=== PATIENT | female | born 1990 | race Two or more races ===

== ENCOUNTER 2024-03-19 17:49 | Emergency (ER) | payer MEDICAID ==
[~2024-03-19] VITALS: Ht 165.1 cm; Wt 108.0 kg
[2024-03-19 17:58] VITALS: BP 114/78; PULSE 90; RESP 16; TEMP 98.8
[2024-03-19 20:05] LABS: COVID19 ANTIGEN SOFIA FIA NEGATIVE (NEGATIVE); Rapid Influenza A Negative (Negative); Rapid Influenza B Negative (Negative)
[2024-03-19] MEDS: DexAMETHasone SOD PHOS 10MG/1ML VIAL INJ IM ONE (20:45)
[2024-03-19 22:00] VITALS: O2SAT 98
== END 2024-03-19 22:00 | disposition home or self-care (01) ==
LOC: ER 17:49
DX: B34.9 Viral infection, unspecified (principal); Z20.822 Contact with and (suspected) exposure to COVID-19; Z88.2 Allergy status to sulfonamides; Z88.6 Allergy status to analgesic agent
CPT/HCPCS: 36415; 87426; 87804

== ENCOUNTER 2025-02-13 18:34 | Emergency (ER) | payer MEDICAID ==
[~2025-02-13] VITALS: Ht 165.1 cm; Wt 115.0 kg
--- NOTE | 2025-02-13 19:10 | ED.PDOC ---
GI ASSESSMENT HPI Comments 34 Year old Female presents to the ED for the c/c of Epigastric ABD pain. Pt states that her pain started approx 3x hours ago while she was eating dinner on the couch with her son. Pt notes she started have associated SOB, light CP, N/ but no /V with her ABD pain. Pt notes that there are no alleviating factors at this time, with a worsening factor of laying down. Pt notes that she is currently 28 weeks . No other associated symptoms, modifiers, recent injuries or sick contacts present at this time. Chief Complaint: Abdominal Pain Time Seen by MD: 19:04 Primary Care Provider: UNKNOWN Reviewed Notes: Nurses Notes, Medications, Allergies Allergies: Coded Allergies: Morphine (Verified Allergy, Unknown, 03/19/24) Sulfa Antibiotics (Verified Allergy, Unknown, 03/19/24) Information Source: Patient Mode of Arrival: Ambulatory Timing: Hours Duration: Since onset, Hours Prehospital treatment: None Quality: Aching, Cramping Vomitus: None Stool: Normal Severity: Moderate Recent: None Recent Hx of: None Pain Location: Diffuse, Epigastric Modifying Factors: Food, Position, Movement Associated sign and symptoms: Nausea, Abdominal Pain Vital Signs Vital Signs Date Time Temp Pulse Resp B/P (MAP) Pulse Ox O2 Delivery O2 Flow Rate FiO2 02/13/25 18:53 97.9 74 16 110/50 (70) 95 97.9 Physical Exam General: Awake, alert and oriented. Moderate acute distress. Skin: Skin in warm, dry and intact. Appropriate color for ethnicity. HEENT: The head is normocephalic and atraumatic. Conjunctivae are clear without exudates or hemorrhage. Sclera is non-icteric. EOM are intact. No signs of nystagmus. Eyelids are normal in appearance without swelling or lesions. Oral mucosa is pink and moist Neck: The neck is supple with normal range of motion. No JVD. Cardiac: Heart rate and rhythm are normal. No murmurs, gallops, or rubs are auscultated. Respiratory: No signs of respiratory distress. Lung sounds are clear in all lobes bilaterally without rales, rhonchi, or wheezes. Abdominal: Abdomen is soft, non-tender without distention, guarding or rigidity. Gravid abdomen. Bowel sounds are present and normoactive in all four quadrants. No CVA tenderness. Extremities: Upper and lower extremities are atraumatic in appearance without deformity or edema. Neurological: The patient is awake, alert and oriented to person, place, and time with normal speech. Speech is clear. There is no facial asymmetry. Psychiatric: Appropriate mood and affect. Good judgement and insight. Review of Systems: REVIEW OF SYSTEMS: No fever, no chills, or fatigue HEENT: No sore throat, no earache, no congestion, no neck pain. Cardiac: + chest pain. No palpitations. Lungs: + shortness of breath, no cough. GI: + nausea, no vomiting, no diarrhea, no constipation, no abdominal pain : No dysuria, frequency, or urgency. No hematuria. Musculoskeletal: No joint pain , no joint swelling, no extremity edema. Skin: No rash, no itching. 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 Was a procedure done?: No GI differential Dx Differential Diagnosis: Appendicitis, Cholangitis, Cholecystitis, Constipation, Ectopic , Gastritis/PUD, Pancreatitis, X-Ray, Labs, Meds, VS Vital Signs Date Time Temp Pulse Resp B/P (MAP) Pulse Ox O2 Delivery O2 Flow Rate FiO2 02/13/25 18:53 97.9 74 16 110/50 (70) 95 97.9 Lab Test 02/13/25 19:05 02/13/25 18:56 Range/Units White Blood Count 13.2 H 4.4-10.8 10^3/uL Red Blood Count 4.30 4.0-5.20 10^6/uL Hemoglobin 12.5 12.2-16.2 g/dL Hematocrit 37.3 36.0-46.0 % Mean Corpuscular Volume 86.8 80.0-100.0 fL Mean Corpuscular Hemoglobin 29.1 28.0-32.0 pg Mean Corpuscular Hemoglobin Concent 33.6 32.0-36.0 g/dL Red Cell Distribution Width 13.6 11.8-14.3 % Platelet Count 317 140-450 10^3/uL Mean Platelet Volume 8.2 6.9-10.8 fL Neutrophils (%) (Auto) 77.9 37.0-80.0 % Lymphocytes (%) (Auto) 14.0 10.0-50.0 % Monocytes (%) (Auto) 6.6 0.0-12.0 % Eosinophils (%) (Auto) 1.1 0.0-7.0 % Basophils (%) (Auto) 0.4 0.0-2.0 % Neutrophils # (Auto) 10.3 H 1.6-8.6 10 ^3/uL Lymphocytes # (Auto) 1.8 0.4-5.4 10 ^3/uL Monocytes # (Auto) 0.9 0-1.3 10 ^3/uL Eosinophils # (Auto) 0.2 0-0.8 10 ^3/uL Basophils # (Auto) 0.1 0-0.2 10 ^3/uL Nucleated Red Blood Cells 0.0 % Sodium Level 139 136-145 mmol/L Potassium Level 3.7 3.5-5.1 mmol/L Chloride Level 107 98-107 mmol/L Carbon Dioxide Level 22 20-31 mmol/L Anion Gap 10 5-15 Blood Urea Nitrogen 8 L 9-23 mg/dL Creatinine 0.74 0.550-1.02 mg/dL Glomerular Filtration Rate Calc 109 >90 mL/min BUN/Creatinine Ratio 10.8 10.0-20.0 Serum Glucose 114 H 74-106 mg/dL Calcium Level 9.7 8.7-10.4 mg/dL Magnesium Level 1.9 1.6-2.6 mg/dL Total Bilirubin 0.4 0.2-1.0 mg/dL Aspartate Amino Transferase (AST) 44 H 13-40 U/L Alanine Aminotransferase (ALT) 26 7-40 U/L Alkaline Phosphatase 82 46-116 U/L Troponin I High Sensitivity < 3 L </=34 ng/L Total Protein 6.7 5.7-8.2 g/dL Albumin 4.1 3.2-4.8 g/dL Lipase 41 12-53 U/L Urine Color Yellow Yellow Urine Clarity Turbid H Clear Urine pH 5.5 5.0-9.0 Urine Specific Sunspot 1.025 1.001-1.035 Urine Protein Trace H Negative Urine Ketones Negative Negative Urine Blood Negative Negative /uL Urine Nitrite Negative Negative Urine Bilirubin Negative Negative Urine Urobilinogen Normal Negative mg/dL Urine Leukocyte Esterase Negative Negative /uL Urine RBC 3 0 - 4 /hpf Urine Microscopic WBC 4 0-5 /HPF Urine Squamous Epithelial Cells Mod <5 /hpf Urine Bacteria Few H None Seen /hpf Urine Mucus Few None Seen Urine Glucose Normal Normal mg/dL PATIENT: MORRIS CASAS ACCT: [id number] UNIT: [id number] : 1990 LOC: ER ROOM / BED: / AGE / SEX: 34 / F ADM STATUS: REG ER SERVICE 52 ORDERING PHYSICIAN: MOOSE GOMEZ MD PROCEDURE(s): GBUS - GALLBLADDER REASON: epigastric pain ORDER NUMBER(s): [id number], ACCESSION NUMBER(s): [id number] ABDOMINAL ULTRASOUND CLINICAL HISTORY: epigastric pain TECHNIQUE: Multiple grayscale and color Doppler ultrasound images were obtained of the abdomen. WID: COMPARISON: None FINDINGS: Liver and Biliary System: Homogeneous echotexture, normal size measuring 16.92 cm. No focal hepatic observations. No intrahepatic bile duct dilatation. The common duct measures 0.5 cm at the chaim hepatis. The gallbladder cholelithiasis in a normal caliber gallbladder. Gallbladder wall measures 5.7 mm.. Pancreas: Visualized portions are unremarkable. Kidneys: The right kidney is 10.78 cm . No hydronephrosis, increased echogenicity, shadowing stone, or focal lesion. IMPRESSION: 1. Cholelithiasis in a normal caliber gallbladder with mild wall thickening. Sonographic Bunch's sign is negative. Wall thickening DDX includes underlying hepatic dysfunction, volume overload, or less likely acute or chronic cholecystitis. ENT: MORRIS CASAS ACCT: [id number] UNIT: [id number] : 1990 LOC: ER ROOM / BED: / AGE / SEX: 34 / F ADM STATUS: REG ER SERVICE 52 ORDERING PHYSICIAN: MOOSE GOMEZ MD PROCEDURE(s): OBUS - OB ULTRASOUND COMP GTR 14 WKS REASON: / epigastric pain / decreased movement ORDER NUMBER(s): [id number], ACCESSION NUMBER(s): [id number] OB ULTRASOUND COMPLETE: HISTORY: / epigastric pain / decreased movement TECHNIQUE: Multiple real-time grayscale images of the gravid uterus with duplex Doppler color flow and M-mode spectral analysis. FINDINGS: IUP single live fetus at 28 weeks 4 days average ultrasound age (AUA) based on composite averages of the BPD, head circumference, abdominal circumference and femur length Age based on (early ultrasound) : No prior studies MEASUREMENTS: BPD: 7.08 cm GA: 20 w 3 d HC: 26.16 cm GA: 28 w 3 d AC: 22.54 cm GA: 27 w 0 d FL: 5.75 cm GA: 30 w 1 d HC/AC Ratio: 1.16 Range: 1-1.21 Estimated weight 1203 grams; 2 lbs 10 oz, 44.3 percentile. heart rate 136 beats per minute LARISSA 12.2 cm, MVP 4.26 cm anatomic survey: Lateral ventricles: Normal Posterior fossa: Normal Umbilical cord: Normal three-vessel C-spine: Normal T-spine: Normal L-spine: Normal Heart: Normal four-chamber Kidneys: Normal without hydronephrosis Bladder: Normal Lower extremities: Normal Upper extremities: Normal Stomach: Normal stomach bubble Diaphragms: Normal Nose/lips: Normal RVOT: Normal LVOT: No rmal Vertex Presentation Grade 2 Placenta without previa or abruption Cervix closed measuring 3.5 cm IMPRESSION: 1. IUP single live fetus at 28 weeks 4 days AUA corresponding to an SHERWIN of 05/04/2025. 2. FHR: 136 beats per minute. Time of 1ST Reevaluation: 19:35 Reevaluation 1ST: Unchanged Patient Education/Counseling: Need For Follow Up Family Education/Counseling: No Family Present Departure 1 Departure Time of Disposition: 20:43 Impression: Primary Impression: Abdominal pain Additional Impressions: Gallstones Normal Disposition: 01 HOME / SELF CARE / HOMELESS Condition: Stable Additional Instructions: ED DISCHARGE INSTRUCTIONS Instructions: Please read all instructions provided in this packet carefully. Although you have been discharged from the Emergency Department, this does not mean that you have a "clean bill of health". No definitive diagnosis for your symptoms has been made today. It is possible that you are in the process of developing a serious illness. This is why you must return to the ED without fail if any new or worsening symptoms (especially if your symptoms include chest pain, trouble breathing, abdominal pain, fever, headache, confusion, trouble seeing, or trouble walking) It is also very important that you see a primary care doctor within the next 3-5 days to follow up. If you are unable to get an appointment, return to the ED for re-evaluation. A copy of your ultrasound report is included below: Abdominal Pain: Care Instructions Overview Abdominal pain has many possible causes. Some aren't serious and get better on their own in a few days. Others need more testing and treatment. If your pain continues or gets worse, you need to be rechecked and may need more tests to find out what is wrong. You may need surgery to correct the problem. Don't ignore new symptoms, such as fever, nausea and vomiting, urination problems, pain that gets worse, and dizziness. These may be signs of a more serious problem. If you are not getting better, you may need more tests or treatment. The doctor has checked you carefully, but problems can develop later. If you notice any problems or new symptoms, get medical treatment right away. Follow-up care is a corrigan part of your treatment and safety. Be sure to make and go to all appointments, and call your doctor if you are having problems. It's also a good idea to know your test results and keep a list of the medicines you take. How can you care for yourself at home? Rest until you feel better. To prevent dehydration, drink plenty of fluids. Choose water and other clear liquids until you feel better. If you have kidney, heart, or liver disease and have to limit fluids, talk with your doctor before you increase the amount of fluids you drink. When you feel like eating, start with small amounts. Do not have alcohol, caffeine, or spicy, hot, or high-fat foods for a day or two. Avoid anti-inflammatory medicines such as aspirin, ibuprofen (Advil, Motrin), and naproxen (Aleve). These can cause stomach upset. Talk to your doctor if you take daily aspirin for another health problem. When should you call for help? Call 911 anytime you think you may need emergency care. For example, call if: You passed out (lost consciousness). You pass maroon or very bloody stools. You vomit blood or what looks like coffee grounds. You have severe belly pain. Call your doctor now or seek immediate medical care if: Your pain gets worse, especially if it becomes focused in one area of your belly. You have a new or higher fever. Your stools are black and look like tar, or they have streaks of blood. You have unexpected vaginal bleeding. You have symptoms of a urinary tract infection. These may include: Pain when you urinate. Urinating more often than usual. Blood in your urine. You are dizzy or lightheaded, or you feel like you may faint. Watch closely for changes in your health, and be sure to contact your doctor if: You are not getting better as expected. Credits for Abdominal Pain: Care Instructions Current as of: June 24, 2023 Author: [employer] Staff Clinical Review Board All [employer] education is reviewed by a team that includes physicians, nurses, advanced practitioners, registered dieticians, and other healthcare professionals. Gallstones: Care Instructions Gallstones are stones made of cholesterol and other substances that form in the gallbladder. The gallbladder stores bile. Bile helps the body digest food. Gallstones also can form in the bile duct. This is the tube that carries bile from the gallbladder and the liver to the small intestine. Gallstones that block the gallbladder from emptying or get stuck in the bile duct can cause pain and infection. Sometimes a thick material called "sludge" forms instead of stones. This can cause the same problems as gallstones. The doctor may have given you medicine for pain. You may need follow-up appointments for more testing and treatment. If you continue to have problems, you may need surgery to remove your gallbladder. The doctor has checked you carefully, but problems can develop later. If you notice any problems or new symptoms, get medical treatment right away . Follow-up care is a corrigan part of your treatment and safety. Be sure to make and go to all appointments, and call your doctor if you are having problems. It's also a good idea to know your test results and keep a list of the medicines you take. How can you care for yourself at home? Rest until you feel better. Be safe with medicines. Read and follow all instructions on the label. If the doctor gave you a prescription medicine for pain, take it as prescribed. If you are not taking a prescription pain medicine, ask your doctor if you can take an [id number]-[id number] medicine. Avoid foods that cause symptoms, especially fatty foods. These can make the gallbladder tighten and cause pain. When should you call for help? Call your doctor now or seek immediate medical care if: You are vomiting. You have new or worse belly pain. You have a fever. You cannot pass stools or gas. Watch closely for changes in your health, and be sure to contact your doctor if you have any problems. Credits for Gallstones: Care Instructions Current as of: June 24, 2024 Author: [employer] Staff Clinical Review Board All [employer] education is reviewed by a team that includes physicians, nurses, advanced practitioners, registered dieticians, and other healthcare professionals. PATIENT: MORRIS CASAS ACCT: [id number] UNIT: [id number] : 1990 LOC: ER ROOM / BED: / AGE / SEX: 34 / F ADM STATUS: REG ER SERVICE 52 ORDERING PHYSICIAN: MOOSE GOMEZ MD PROCEDURE(s): GBUS - GALLBLADDER REASON: epigastric pain ORDER NUMBER(s): [id number], ACCESSION NUMBER(s): [id number] ABDOMINAL ULTRASOUND CLINICAL HISTORY: epigastric pain TECHNIQUE: Multiple grayscale and color Doppler ultrasound images were obtained of the abdomen. WID: COMPARISON: None FINDINGS: Liver and Biliary System: Homogeneous echotexture, normal size measuring 16.92 cm. No focal hepatic observations. No intrahepatic bile duct dilatation. The common duct measures 0.5 cm at the chaim hepatis. The gallbladder cholelithiasis in a normal caliber gallbladder. Gallbladder wall measures 5.7 mm.. Pancreas: Visualized portions are unremarkable. Kidneys: The right kidney is 10.78 cm . No hydronephrosis, increased echoge nicity, shadowing stone, or focal lesion. IMPRESSION: 1. Cholelithiasis in a normal caliber gallbladder with mild wall thickening. Sonographic Bunch's sign is negative. Wall thickening DDX includes underlying hepatic dysfunction, volume overload, or less likely acute or chronic cholecystitis. ENT: MORRIS CASAS ACCT: [id number] UNIT: [id number] : 1990 LOC: ER ROOM / BED: / AGE / SEX: 34 / F ADM STATUS: REG ER SERVICE 6333 ORDERING PHYSICIAN: MOOSE GOMEZ MD PROCEDURE(s): OBUS - OB ULTRASOUND COMP GTR 14 WKS REASON: / epigastric pain / decreased movement ORDER NUMBER(s): [id number], ACCESSION NUMBER(s): [id number] OB ULTRASOUND COMPLETE: HISTORY: / epigastric pain / decreased movement TECHNIQUE: Multiple real-time grayscale images of the gravid uterus with duplex Doppler color flow and M-mode spectral analysis. FINDINGS: IUP single live fetus at 28 weeks 4 days average ultrasound age (AUA) based on composite averages of the BPD, head circumference, abdominal circumference and femur length Age based on (early ultrasound) : No prior studies MEASUREMENTS: BPD: 7.08 cm GA: 20 w 3 d HC: 26.16 cm GA: 28 w 3 d AC: 22.54 cm GA: 27 w 0 d FL: 5.75 cm GA: 30 w 1 d HC/AC Ratio: 1.16 Range: 1-1.21 Estimated weight 1203 grams; 2 lbs 10 oz, 44.3 percentile. heart rate 136 beats per minute LARISSA 12.2 cm, MVP 4.26 cm anatomic survey: Lateral ventricles: Normal Posterior fossa: Normal Umbilical cord: Normal three-vessel C-spine: Normal T-spine: Normal L-spine: Normal Heart: Normal four-chamber Kidneys: Normal without hydronephrosis Bladder: Normal Lower extremities: Normal Upper extremities: Normal Stomach: Normal stomach bubble Diaphragms: Normal Nose/lips: Normal RVOT: Normal LVOT: Normal Vertex Presentation Grade 2 Placenta without previa or abruption Cervix closed measuring 3.5 cm IMPRESSION: 1. IUP single live fetus at 28 weeks 4 days AUA corresponding to an SHERWIN of 05/04/2025. 2. FHR: 136 beats per minute. Comments 34-year-old female 28 weeks gestational age presents with epigastric abdominal pain. Workup positive for gallstones without cholecystitis. There was no elevation of the LFTs. Ob ultrasound shows normal uterus with a normal heart rate. Cardiac workup is also negative. Patient has been pain-free while in the emergency department. Patient is felt stable for discharge home to follow up promptly with Ob/PCP. Patient advised to return to the emergency department with any new, worsening or concerning symptoms. I reviewed the following notes from the pt's past medical encounters: N/A The following tests were ordered, and results were reviewed by me: (See diagnostic results section) The following test were independently interpreted by me: N/A Additional information was gathered from interviewing the following independent historians: N/A I reviewed and agreed with the following test results read by other providers: N/A I discussed treatments and results with patient Decision regarding hospitalization or escalation of hospital level of care: Risks and benefits of admission for further treatment of patient's condition was considered however due to patient's stable condition patient will be discharged to follow up closely or return to care for worsening of condition or inability to follow up. Critical Care Note Critical Care Time?: No Stability Stability form required: No Heart Score Heart Score: Heart Score Response (Comments) Value History N/A 0 EKG N/A 0 Age N/A 0 Risk Factors N/A 0 Troponin N/A 0 Total 0 I personally scribed for MOOSE GOMEZ MD ([email or web address]) on 02/13/25 at 19:10. Electronically submitted by Darshan Ann ([email or web address]). I personally scribed for MOOSE GOMEZ MD ([email or web address]) on 02/13/25 at 20:27. Electronically submitted by Darshan Ann ([email or web address]). I personally scribed for MOOSE GOMEZ MD ([email or web address]) on 02/13/25 at 20:32. Electronically submitted by Darshan Ann ([email or web address]). MOOSE GOMEZ MD Feb 13, 2025 19:10
[2025-02-13 19:27] LABS: Basophils # (auto) 0.1 10 ^3/uL (0-0.2); Basophils % (auto) 0.4 % (0.0-2.0); Eosinophils # (auto) 0.2 10 ^3/uL (0-0.8); Eosinophils % (auto) 1.1 % (0.0-7.0); Hematocrit 37.3 % (36.0-46.0); Hemoglobin 12.5 g/dL (12.2-16.2); Lymphocytes # (auto) 1.8 10 ^3/uL (0.4-5.4); Mean Corpuscular Hemoglobin 29.1 pg (28.0-32.0); Mean Corpuscular Hgb Conc. 33.6 g/dL (32.0-36.0); Mean Corpuscular Volume 86.8 fL (80.0-100.0); Monocytes # (auto) 0.9 10 ^3/uL (0-1.3); Monocytes % (auto) 6.6 % (0.0-12.0); Neutrophils # (auto) 10.3 10 ^3/uL (1.6-8.6); Neutrophils % (auto) 77.9 % (37.0-80.0); Platelet Count (auto) 317 10^3/uL (140-450); Red Cell Distribution Width 13.6 % (11.8-14.3); White Blood Cell 13.2 10^3/uL (4.4-10.8)
[2025-02-13 19:52] LABS: Urine Bacteria FEW /hpf (None Seen); Urine Blood Negative /uL (Negative); Urine Clarity Turbid (Clear); Urine Color Yellow (Yellow); Urine Mucus FEW (None Seen); Urine Protein, UAD TRACE (Negative); Urine Specific Gravity 1.025 (1.001-1.035); Urine Squamous Epithelial Cell MOD /hpf (<5); Urine Urobilinogen Normal (Negative); Urine WBC 4 /HPF (0-5); Urine pH 5.5 (5.0-9.0)
[2025-02-13 19:54] LABS: Alanine Aminotransferase 26 U/L (7-40); Albumin 4.1 g/dL (3.2-4.8); Alkaline Phosphatase 82 U/L (46-116); Anion Gap 10 (5-15); BUN/Creatinine Ratio 10.8 (10.0-20.0); Bilirubin, Total 0.4 mg/dL (0.2-1.0); Calcium 9.7 mg/dL (8.7-10.4); Carbon Dioxide 22 mmol/L (20-31); Chloride 107 mmol/L (98-107); Magnesium 1.9 mg/dL (1.6-2.6); Potassium 3.7 mmol/L (3.5-5.1); Sodium 139 mmol/L (136-145); Total Protein 6.7 g/dL (5.7-8.2)
[2025-02-13 19:55] LABS: Aspartate Aminotransferase 44 U/L (13-40); Blood Urea Nitrogen 8 mg/dL (9-23); Glucose 114 mg/dL (74-106)
[2025-02-13 20:05] LABS: Lipase 41 U/L (12-53)
--- NOTE | 2025-02-13 20:13 | DVH ---
ABDOMINAL ULTRASOUND CLINICAL HISTORY: epigastric pain TECHNIQUE: Multiple grayscale and color Doppler ultrasound images were obtained of the abdomen. WID: COMPARISON: None FINDINGS: Liver and Biliary System: Homogeneous echotexture, normal size measuring 16.92 cm. No focal hepati c observations. No intrahepatic bile duct dilatation. The common duct measures 0.5 cm at the chaim hepatis. The gallbladder cholelithiasis in a normal caliber gallbladder. Gallbladder wall measure s 5.7 mm.. Pancreas: Visualized portions are unremarkable. Kidneys: The right kidney is 10.78 cm . No hydronephrosis, increased echogenicity, shadowing stone, or focal lesion. IMPRESSION: 1. Cholelithiasis in a normal caliber gallbladder with mild wall thickening. Sonographic Bunch's sig n is negative. Wall thickening DDX includes underlying hepatic dysfunction, volume overload, or less likely acute or chronic cholecystitis.
--- NOTE | 2025-02-13 20:24 | DVH ---
OB ULTRASOUND COMPLETE: HISTORY: / epigastric pain / decreased movement TECHNIQUE: Multiple real-time grayscale images of the gravid uterus with duplex Doppler color flow an d M-mode spectral analysis. FINDINGS: IUP single live fetus at 28 weeks 4 days average ultrasound age (AUA) based on composite averages of the BPD, head circumference, abdominal circumference and femur length Age based on (early ultrasound) : No prior studies MEASUREMENTS: BPD: 7.08 cm GA: 20 w 3 d HC: 26.16 cm GA: 28 w 3 d AC: 22.54 cm GA: 27 w 0 d FL: 5.75 cm GA: 30 w 1 d HC/AC Ratio: 1.16 Range: 1-1.21 Estimated weight 1203 grams; 2 lbs 10 oz, 44.3 percentile. heart rate 136 beats per minute LARISSA 12.2 cm, MVP 4.26 cm anatomic survey: Lateral ventricles: Normal Posterior fossa: Normal Umbilical cord: Normal thre e-vessel C-spine: Normal T-spine: Normal L-spine: Normal Heart: Normal four-chamber Kidneys: Normal w ithout hydronephrosis Bladder: Normal Lower extremities: Normal Upper extremities: Normal Stomach: No rmal stomach bubble Diaphragms: Normal Nose/lips: Normal RVOT: Normal LVOT: Normal Vertex Presentation Grade 2 Placenta without previa or abruption Cervix closed measuring 3.5 cm IMPRESSION: 1. IUP single live fetus at 28 weeks 4 days AUA corresponding to an SHERWIN of 05/04/2025. 2. FHR: 136 beats per minute.
[2025-02-13 21:33] VITALS: BP 106/62; PULSE 68; RESP 16; TEMP 98.5; O2SAT 95
[2025-02-13] MEDS: LACTATED RINGER'S 1,000 ML IV ONE (22:14)
== END 2025-02-13 22:15 | disposition home or self-care (01) ==
LOC: ER 18:34
DX: O99.613 Diseases of the digestive system complicating pregnancy, third trimester (principal); K80.20 Calculus of gallbladder without cholecystitis without obstruction; Z3A.28 28 weeks gestation of pregnancy; Z88.2 Allergy status to sulfonamides; Z88.5 Allergy status to narcotic agent
CPT/HCPCS: 36415; 76705; 76805; 80053; 81001; 83690; 83735; 84484; 85025